=== PATIENT | female | born 1930 | race Caucasian/White ===

== ENCOUNTER 2017-06-15 10:52 | Outpatient (CLI) | payer MEDICARE, OTHER ==
--- NOTE | 2017-06-16 07:15 | RAD ---
RIGHT RIB SERIES: HISTORY: Fall and right-sided chest pain. FINDINGS/IMPRESSION: Old multiple right-sided fractures are present which were also seen on the CT chest of 12/16/13. No a cute right-sided rib fracture is seen. POS: JOSELINE
--- NOTE | 2017-06-16 07:15 | RAD ---
RIGHT SHOULDER 3 VIEWS: HISTORY: Acute right shoulder pain. FINDINGS/IMPRESSION: No acute fracture or dislocation is seen. There are degenerative changes in the acromioclavicular vicente int. There are old fractures of the right ribs. POS: JOSELINE
== END 2017-06-15 10:53 | disposition home or self-care (01) ==
LOC: BURRAD 10:52
PROVIDERS: ATTEND Family Medicine
DX: M25.511 Pain in right shoulder (principal); R07.81 Pleurodynia; M19.011 Primary osteoarthritis, right shoulder; Z87.81 Personal history of (healed) traumatic fracture